=== PATIENT | male | born 1990 | race Caucasian/White ===

== ENCOUNTER 2021-07-09 18:09 | Emergency (ER) | payer OTHER ==
[~2021-07-09] VITALS: Ht 180.3 cm; Wt 143.2 kg
[2021-07-09] MEDS ORDERED: CYCLOBENZAPRINE10 M1 PO (19:15)
[2021-07-09 19:31] VITALS: BP 147/90
== END 2021-07-09 19:31 | disposition home or self-care (01) ==
LOC: ED 18:09
DX: M54.6 Pain in thoracic spine (principal); Z87.891 Personal history of nicotine dependence